=== PATIENT | female | born 1945 | race Hispanic/Latino ===

== ENCOUNTER → 2017-11-17 | Outpatient (CLI) | payer OTHER, MEDICARE ==
[~2017-11-17] MED LIST: AEC81 PO; ATOR40TA69 PO; DILT120C49 PO; LEVO75TA10 PO; LISI10TA7 PO
== END | disposition home or self-care (01) ==
LOC: RAH 12:24
PROVIDERS: ATTEND Family Medicine
DX: N63.20 Unspecified lump in the left breast, unspecified quadrant (principal); N63.10 Unspecified lump in the right breast, unspecified quadrant; R92.8 Other abnormal and inconclusive findings on diagnostic imaging of breast
CPT/HCPCS: 76641; 77066

== ENCOUNTER → 2019-02-08 | Outpatient (CLI) | payer OTHER, MEDICARE | END | disposition home or self-care (01) | LOC: RAH 08:48 | PROVIDERS: ATTEND Family Medicine | DX: N64.4 Mastodynia (principal) | CPT/HCPCS: 77066 ==

== ENCOUNTER 2020-02-13 06:50 | Observation (INO) | payer OTHER, MEDICARE ==
[2020-02-11 11:10] LABS: APPEARANCE,URINE Clear (CLEAR); BILIRUBIN,URINE Negative (NEGATIVE); COLOR,URINE Yellow (YELLOW); GLUCOSE, URINE (UA) Negative (NEGATIVE); KETONES,URINE Negative (NEGATIVE); LEUKOCYTE ESTERASE ,URINE Trace (NEGATIVE); NITRATE,URINE Negative (NEGATIVE); OCCULT BLOOD,URINE Negative (NEGATIVE); PH,URINE 6.5 (5.0-8.0); PROTEIN,URINE Negative (NEGATIVE)
[2020-02-11 11:20] LABS: CREATININE 0.8 mg/dL (0.5-1.5); POTASSIUM 3.9 mmol/L (3.5-5.1)
[2020-02-11 11:25] LABS: INR 0.99 (0.85-1.15); PARTIAL THROMBOPLASTIN TIME 23.5 SEC (26.3-35.5); PROTHROMBIN TIME 10.7 SEC (9.6-11.6)
[2020-02-11 11:26] LABS: BACTERIA,URINE Rare /HPF (None Seen); RBC,URINE 0-1 /HPF (0-1); SQUAMOUS EPITHELIAL CELL,UR Few /HPF (0-2); WBC,URINE 0-1 /HPF (0-1)
[2020-02-11 11:27] LABS: BASOPHILS % (AUTO) 0.7 % (0.0-5.0); HEMATOCRIT 41.8 % (36-48); MEAN CORPUSCULAR HEMOGLOBIN 30.4 pg (27.0-33.0); MEAN CORPUSCULAR HGB CONC 32.3 g/dL (32.0-36.0); MEAN CORPUSCULAR VOLUME 94.1 fL (79-99); MONOCYTES % (AUTO) 6.9 % (3.0-13.0); NEUTROPHILS % (AUTO) 68.2 % (40.0-77.0); PLATELET COUNT (AUTO) 203 K/uL (130-400); RED BLOOD CELL COUNT(AUTO) 4.44 MIL/uL (4.00-5.50); RED CELL DISTRIBUTION WIDTH 13.6 % (11.0-15.5)
[2020-02-12 11:16] VITALS: BP 183/97
--- NOTE | 2020-02-12 14:02 | NUR ---
EKG ANORMAL EKG REPORTED TO Dara ROSE. NO FURTHER ORDERS GIVEN
--- NOTE | 2020-02-12 15:16 | NUR ---
UA INFORMED Lee NGUYỄN RN OF ABNORMAL UA. SHE WILL INFORM DR. MCKAY AND CALL BACK.
--- NOTE | 2020-02-12 15:44 | NUR ---
RE: URINALYSIS RECEIVED ORDERS REGARDING ABNORMAL US, OBTAIN URINE CULTURE IN AM. (SPOKE WITH ELENA WILSON)
[~2020-02-13] VITALS: Ht 165.1 cm; Wt 101.0 kg
[2020-02-13] VITALS (27 sets, daily range): BP systolic 108–161; BP diastolic 46–80
[2020-02-13] MEDS: CEFAZOLIN SODIUM 1 GM VIAL IVP SCH ×3 (06:00→16:50)
[~2020-02-13 06:50] MED LIST changes: -AEC81 PO; -DILT120C49 PO; +LEVO150T11 PO; -LEVO75TA10 PO; +VITAMIN B 12 PO; +VITAMIN D PO
[2020-02-13] MEDS ORDERED: LACTATED RINGERS 1000ML 1,000 ML IV ONE (08:19)
[2020-02-13] MEDS ORDERED: SUCCINYLCHOLINE CHLORIDE 20 MG/ML 10 ML VIAL ONE (09:34)
[2020-02-13] MEDS ORDERED: LIDOCAINE PF 2% 5ML ABBOJECT ONE (09:34)
[2020-02-13] MEDS ORDERED: PROPOFOL 10 MG/ML 20ML VIAL IV ONE (09:34)
[2020-02-13] MEDS ORDERED: ROCURONIUM 10MG/1ML SYR 10 MG/ML ML ONE (09:34)
[2020-02-13] MEDS ORDERED: FENTANYL CITRATE PF 50 MCG/1 ML 2ML VIAL ONE (09:35)
[2020-02-13] MEDS ORDERED: ROPIVACAINE 0.5% 5MG/ML 30ML IJ ONE (09:38)
[2020-02-13] MEDS ORDERED: ACETAMINOPHEN EXTRA STRENGTH 500 MG TABLET ONE (09:40)
--- NOTE | 2020-02-13 09:40 | NUR ---
INFORMED DR MCKAY THAT PATIENT WAS NOT ABLE TO PROVIDE URINE SAMPLE FOR URINE CULTURE/UA. RECEIVED ORDERS TO GIVE GENTAMICIN 240MG IV.
[2020-02-13] MEDS ORDERED: KETOROLAC TROMETHAMINE 15MG/ML ONE (09:41)
[2020-02-13] MEDS ORDERED: CELECOXIB 200 MG CAP ONE (09:41)
[2020-02-13] MEDS ORDERED: GENTAMICIN 120 MG IN 100ML NS 100 ML IV SCH (09:45)
[2020-02-13] MEDS ORDERED: CEFAZOLIN SODIUM 1 GM VIAL ONE (09:51)
--- NOTE | 2020-02-13 10:08 | NUR ---
PATIENT TAKEN INTO OR VIA BED BY ELENA CORCORAN
[2020-02-13] MEDS ORDERED: TRANEXAMIC ACID 1000MG/10ML ONE ×2 (10:29→12:49)
[2020-02-13] MEDS ORDERED: EPHEDRINE SULFATE 50 MG/ML AMPULE ONE (10:36)
[2020-02-13] MEDS ORDERED: NEOSTIGMINE 5MG/5ML SYR IV ONE (12:02)
[2020-02-13] MEDS ORDERED: GLYCOPYRROLATE 1 MG/5 ML SYRINGE ONE (12:02)
[2020-02-13] MEDS ORDERED: LIDOCAINE HCL-MPF 1% 2ML VIAL IV PRN (12:15)
[2020-02-13] MEDS ORDERED: KETOROLAC TROMETHAMINE 15MG/ML IV PRN (12:15)
[2020-02-13] MEDS ORDERED: FERROUS FUMARATE 324 MG TABLET PO PRN (12:15)
[2020-02-13] MEDS ORDERED: DiphenhydrAMINE HCL 50 MG/ML VIAL IVP PRN (12:15)
[2020-02-13] MEDS ORDERED: POTASSIUM CHLORIDE 20 MEQ ERTAB PO PRN (12:15)
[2020-02-13] MEDS ORDERED: ONDANSETRON HCL 4 MG/2 ML VIAL IVP PRN (12:15)
[2020-02-13] MEDS ORDERED: POTASSIUM CHLORIDE 20MEQ/100ML 100 ML IV PRN (12:15)
[2020-02-13] MEDS ORDERED: OXYCODONE HCL 5 MG TAB PO PRN (12:15)
[2020-02-13] MEDS ORDERED: POTASSIUM CHLORIDE 10% ELIXIR 20 MEQ/15 ML UDCUP PO PRN (12:15)
[2020-02-13] MEDS ORDERED: TRAMADOL HCL 50 MG TABLET PO PRN (12:15)
[2020-02-13] MEDS: ACETAMINOPHEN EXTRA STRENGTH 500 MG TABLET PO SCH ×2 (12:15→20:30)
[2020-02-13] MEDS ORDERED: ONDANSETRON HCL 4 MG/2 ML VIAL ONE (12:23)
[2020-02-13] MEDS ORDERED: MEPERIDINE-PF 25 MG/ML SYG ONE (13:17)
[2020-02-13] MEDS: SODIUM CHLORIDE 0.9% 1000ML 1,000 ML IV SCH (14:20)
--- NOTE | 2020-02-13 17:00 | NUR ---
DISRAGE PLANNING AND BARRIERS TO DISPOSITION- SUMMARY INITIAL ASSESSEMENT DONE AT [address], STATES DRIVES AND IS INDEPENDENT, HAS WKR, ROLLING WKR, SHOWER CHAIR, CANE, NO STEP, HOME SAFE AND ACCESSIBLE, [facility] HAS A PROVIDER, [place] NOT DISCLOSE HOURS, JUAN A TOLD HER PROVIDER NOT TO COME BACK WHEN SHE GOES HOME- BECUASE SHE WAS COUGHING REVIEWED THE ORDER RECIEVED RE CONTACT FAMILY/ALTERNATE PLACEMENT TO SNF IF NO FAMILY ; ATTEMPTED TO CALL DAUGHTER WITH NUMBER PATIENT PROVIDED, INCORRECT, BUSY X 5 ATTEMPTS, PATIENT WITHOUT HER CELL PHONE TO CHECK NUMBER, DECLINED TO SAY WHEN DAUGHTER WOULD BE COMING TO ASSIST WITH DISCHARGE. VERBAL MARLON FOR [facility] CALL TO [facility],REP FOR [facility]; ADVISED HER UNABLE TO GET NUMBER FOR DAUGHTER, ADVISED HER OF SITUATION, PT HAS NO PROVIDER, ERC. [facility] SAY CUT OF FOR SCREENING SWAB IS 3 PM, NOT ABLE TO SWAB PATIENT TONCHAVEZ GRIFFIN SUGGESTED- CAN [facility] WILL SWAB NOW TO AVOID DELAY. ORDER REC'D FROM DR. MCKAY FOR SCREENING SWAB FOR PATIENT.POSSIBLE ACCEPTANCE TO [facility] IN AM AFTER REVIEW FO CHART WILL SEND PKT. HERMAN TO CALL PATIENT FOR INTERVIEW WHEN PKT REC'D TO ASSESS IF PATIENT CAN BE ACCEPTED WITHOUT RESULT FINAL. GOT CORRECT NUMBER OF DAUGHTER FROM PATIENT, ATTEMPTED TO CALL, NO ANSWER, WILL FOLLOW UP IN AM. PENDING PT NOTES FOR REFERRAL TO [facility] Addendum: 02/14/20 at 0815 by LYLE JOLLY RN CM Amended: Links added.
[2020-02-13] MEDS: FAMOTIDINE 20MG TAB 20 MG TAB PO SCH (20:30)
[2020-02-13] MEDS: ASPIRIN 81MG TAB.CHEW PO SCH (20:30)
[2020-02-13] MEDS: ATORVASTATIN CALCIUM 40 MG TABLET PO SCH (20:30)
[2020-02-13] MEDS: PREGABALIN 25 MG CAP PO SCH (20:30)
[2020-02-13] MEDS: CELECOXIB 200 MG CAP PO SCH (20:32)
[2020-02-13] MEDS: TEMAZEPAM 15 MG CAPSULE PO PRN (20:52)
[2020-02-14] MEDS: CEFAZOLIN SODIUM 1 GM VIAL IVP SCH (00:48)
[2020-02-14] MEDS: SODIUM CHLORIDE 0.9% 1000ML 1,000 ML IV SCH ×2 (00:51→08:13)
[2020-02-14 03:59] VITALS: BP 130/66
[2020-02-14 04:21] LABS: HEMATOCRIT 32.3 % (36-48); MEAN CORPUSCULAR HEMOGLOBIN 31.6 pg (27.0-33.0); MEAN CORPUSCULAR HGB CONC 33.1 g/dL (32.0-36.0); MEAN CORPUSCULAR VOLUME 95.3 fL (79-99); RED BLOOD CELL COUNT(AUTO) 3.39 MIL/uL (4.00-5.50); RED CELL DISTRIBUTION WIDTH 13.7 % (11.0-15.5); WHITE BLOOD COUNT (AUTO) 9.5 K/uL (4.8-10.8)
[2020-02-14 04:56] LABS: POTASSIUM 4.2 mmol/L (3.5-5.1)
[2020-02-14] MEDS: ACETAMINOPHEN EXTRA STRENGTH 500 MG TABLET PO SCH ×3 (05:21→20:43)
[2020-02-14] MEDS: LEVOTHYROXINE 150 MCG TABLET PO SCH (05:29)
[2020-02-14] MEDS: OXYCODONE HCL 5 MG TAB PO PRN (08:02)
[2020-02-14 08:18] VITALS: BP 126/54
--- NOTE | 2020-02-14 08:19 | NUR ---
SPOKE TO DAUGHTER ON PHONE, PLANS TO TRAVEL IN NEXT WEEK Addendum: 02/14/20 at 0819 by LYLE JOLLY RN CM Amended: Links added.
--- NOTE | 2020-02-14 08:52 | NUR ---
CONFIRMED W PATIENT- ONLY WANTS TO GO TO [facility] NO OTHER FACILITY, IF IF IT MEANS WAITING RODKIMBERLY ALSO STATED HAD A TEST BACK AT [facility] 'ABOUT A MONTH AGO' WAS NEVER TOLD THE RESULT, WAS NOT TOLD TO SELF ISOLATE, PER PATIENT WILL ATTEMPT TO GET RESULT
[2020-02-14] MEDS: VITAMIN D PO SCH (09:00)
[2020-02-14] MEDS: PREGABALIN 25 MG CAP PO SCH ×2 (10:47→20:42)
[2020-02-14] MEDS: CELECOXIB 200 MG CAP PO SCH ×2 (10:47→20:42)
[2020-02-14] MEDS: LISINOPRIL 10 MG TABLET PO SCH (10:48)
[2020-02-14] MEDS: FAMOTIDINE 20MG TAB 20 MG TAB PO SCH ×2 (10:48→20:42)
[2020-02-14] MEDS: ASPIRIN 81MG TAB.CHEW PO SCH ×2 (10:48→20:42)
[2020-02-14] MEDS: POLYETHYLENE GLYCOL 3350 17 GM POWD.PACK PO SCH (10:49)
[2020-02-14] MEDS: CALCIUM CARBONATE 500 MG TABLET PO PRN ×2 (10:57→20:42)
[2020-02-14 12:32] VITALS: BP 156/53
--- NOTE | 2020-02-14 13:59 | NUR ---
WAITING ON ACCEPTANCE AT [facility] Addendum: 02/14/20 at 1400 by LYLE JOLLY RN CM Amended: Links added.
[2020-02-14 17:03] VITALS: BP 159/59
[2020-02-14 19:29] VITALS: BP 162/75
[2020-02-14] MEDS: ATORVASTATIN CALCIUM 40 MG TABLET PO SCH (20:42)
[2020-02-14] MEDS: TEMAZEPAM 15 MG CAPSULE PO PRN (20:42)
[2020-02-14 23:51] VITALS: BP 107/47
[2020-02-15 03:54] VITALS: BP 127/56
[2020-02-15] MEDS: LEVOTHYROXINE 150 MCG TABLET PO SCH (04:59)
[2020-02-15] MEDS: ACETAMINOPHEN EXTRA STRENGTH 500 MG TABLET PO SCH ×3 (05:00→21:00)
[2020-02-15 07:30] VITALS: BP 122/47
[2020-02-15] MEDS: PREGABALIN 25 MG CAP PO SCH ×2 (08:47→20:59)
[2020-02-15] MEDS: ASPIRIN 81MG TAB.CHEW PO SCH ×2 (08:47→20:59)
[2020-02-15] MEDS: FAMOTIDINE 20MG TAB 20 MG TAB PO SCH ×2 (08:47→20:59)
[2020-02-15] MEDS: LISINOPRIL 10 MG TABLET PO SCH (08:47)
[2020-02-15] MEDS: POLYETHYLENE GLYCOL 3350 17 GM POWD.PACK PO SCH (08:47)
[2020-02-15] MEDS: VITAMIN D PO SCH (08:47)
[2020-02-15] MEDS: CELECOXIB 200 MG CAP PO SCH ×2 (08:48→20:59)
--- NOTE | 2020-02-15 11:33 | NUR ---
PENDING [facility] ACCEPTANCE
[2020-02-15 16:00] VITALS: BP 120/53
[2020-02-15 19:00] VITALS: BP 149/64
[2020-02-15] MEDS: ATORVASTATIN CALCIUM 40 MG TABLET PO SCH (20:59)
[2020-02-16] VITALS: BP 124/54
[2020-02-16 03:45] VITALS: BP 139/79
[2020-02-16] MEDS: ACETAMINOPHEN EXTRA STRENGTH 500 MG TABLET PO SCH ×2 (06:18→13:49)
[2020-02-16] MEDS: LEVOTHYROXINE 150 MCG TABLET PO SCH (06:18)
[2020-02-16 07:30] VITALS: BP 142/64
[2020-02-16] MEDS ORDERED: ASPI-1005 PO (08:59)
[2020-02-16] MEDS ORDERED: HYDR-4457 PO (08:59)
[2020-02-16] MEDS: VITAMIN D PO SCH (09:00)
[2020-02-16] MEDS: FAMOTIDINE 20MG TAB 20 MG TAB PO SCH (09:19)
[2020-02-16] MEDS: POLYETHYLENE GLYCOL 3350 17 GM POWD.PACK PO SCH (09:20)
[2020-02-16] MEDS: LISINOPRIL 10 MG TABLET PO SCH (09:20)
[2020-02-16] MEDS: CELECOXIB 200 MG CAP PO SCH (09:20)
[2020-02-16] MEDS: ASPIRIN 81MG TAB.CHEW PO SCH (09:20)
[2020-02-16] MEDS: PREGABALIN 25 MG CAP PO SCH (09:20)
[2020-02-16] MEDS: OXYCODONE HCL 5 MG TAB PO PRN (09:21)
--- NOTE | 2020-02-16 11:47 | NUR ---
cm note call made to david mckoy with [facility] requested covid results and were faxed to [facility] . states pt approved, and can go today if ready. updated primary nurse. and charge nurse.
[2020-02-16] MEDS ORDERED: BISACODYL 10 MG SUPP.RECT RC PRN (12:15)
== END 2020-02-16 14:20 ==
LOC: DAH 06:50 → 3DH 06:51
PROVIDERS: ADMIT Orthopaedic Surgery; ATTEND Orthopaedic Surgery
DX: M17.0 Bilateral primary osteoarthritis of knee (principal); I25.10 Atherosclerotic heart disease of native coronary artery without angina pectoris; I11.9 Hypertensive heart disease without heart failure; M15.9 Polyosteoarthritis, unspecified; E03.9 Hypothyroidism, unspecified; E78.00 Pure hypercholesterolemia, unspecified; E78.5 Hyperlipidemia, unspecified; R00.0 Tachycardia, unspecified; E66.9 Obesity, unspecified; Z03.818 Encounter for observation for suspected exposure to other biological agents ruled out; Z90.49 Acquired absence of other specified parts of digestive tract; Z98.51 Tubal ligation status; Z79.82 Long term (current) use of aspirin; Z79.899 Other long term (current) drug therapy; Z88.0 Allergy status to penicillin; Z88.8 Allergy status to other drugs, medicaments and biological substances; Z68.37 Body mass index [BMI] 37.0-37.9, adult
CPT/HCPCS: 27447; 36415 ×3; 80048 ×2; 81001; 85025; 85027; 85610; 85730; 87633; 87635; 87641; 93005; 96365; 96375 ×2; 96376; 97039 ×5; 97116 ×4; 97161; 97530 ×4; A4213; A4215; A4216; A4221; A4222; A4223 ×2; A4600; A4649 ×3; A4663; A4930 ×2; A5120; A6223; A9272; C1776; G0378 ×72; G8978; G8979; G8980; G8981; G8982; G8983; J0330; J0690 ×5; J1580; J1885 ×2; J2001; J2175; J2405; J2704; J2710; J2795; J3010; J3490 ×4; J7120 ×2; 96374

== ENCOUNTER 2022-07-02 16:37 | Emergency (ER) | payer OTHER, MEDICARE ==
[~2022-07-02] VITALS: Ht 165.1 cm; Wt 93.0 kg
[~2022-07-02 16:37] MED LIST changes: +AMOX-426 PO; +ASPI-1005 PO; +ATOR20TA65 PO; -ATOR40TA69 PO; +LIDOP TP; -LISI10TA7 PO; +LOSA100T58 PO; +NITR0.4T SL; +TAMS-1 PO; -VITAMIN D PO
[2022-07-02 17:48] LABS: BASOPHILS % (AUTO) 0.9 % (0.0-5.0); HEMATOCRIT 40.6 % (36-48); LYMPHOCYTES % (AUTO) 20.5 % (21.0-51.0); MEAN CORPUSCULAR HEMOGLOBIN 30.4 pg (27.0-33.0); MEAN CORPUSCULAR HGB CONC 33.5 g/dL (32.0-36.0); MEAN CORPUSCULAR VOLUME 90.8 fL (79-99); MONOCYTES % (AUTO) 7.7 % (3.0-13.0); NEUTROPHILS % (AUTO) 67.5 % (40.0-77.0); PLATELET COUNT (AUTO) 234 K/uL (130-400); RED BLOOD CELL COUNT(AUTO) 4.47 MIL/uL (4.00-5.50); RED CELL DISTRIBUTION WIDTH 13.4 % (11.0-15.5); WHITE BLOOD COUNT (AUTO) 7.4 K/uL (4.8-10.8)
[2022-07-02 17:50] LABS: APPEARANCE,URINE CLEAR (CLEAR); BILIRUBIN,URINE NEGATIVE (NEGATIVE); COLOR,URINE COLORLESS (YELLOW); GLUCOSE, URINE (UA) NEGATIVE (NEGATIVE); KETONES,URINE NEGATIVE (NEGATIVE); LEUKOCYTE ESTERASE ,URINE 500 Leu/uL (NEGATIVE); NITRATE,URINE NEGATIVE (NEGATIVE); OCCULT BLOOD,URINE NEGATIVE (NEGATIVE); PROTEIN,URINE NEGATIVE (NEGATIVE); UROBILINOGEN,URINE 0.2 mg/dL (0.2-1.0)
[2022-07-02 17:59] LABS: BACTERIA,URINE RARE /HPF (None Seen); RBC,URINE 0-1 /HPF (0-1); RENAL EPITHELIAL CELLS,URINE FEW /HPF (None Seen); SQUAMOUS EPITHELIAL CELL,UR RARE /HPF (0-2)
[2022-07-02 18:00] LABS: CREATININE 0.9 mg/dL (0.5-1.5); POTASSIUM 4.6 mmol/L (3.5-5.1)
[2022-07-02 18:09] LABS: ALBUMIN 3.8 g/dL (3.5-5.0); TOTAL PROTEIN, SERUM 7.8 g/dL (6.0-8.3)
[2022-07-02] MEDS ORDERED: CEFTRIAXONE 1G VIAL IVP ONE (19:00)
[2022-07-02 19:04] VITALS: BP 166/76
[2022-07-02] MEDS ORDERED: CEPH500B PO (19:50)
== END 2022-07-02 19:59 | disposition home or self-care (01) ==
LOC: EDH 16:37
DX: N39.0 Urinary tract infection, site not specified (principal); I10 Essential (primary) hypertension; Z88.5 Allergy status to narcotic agent; Z88.8 Allergy status to other drugs, medicaments and biological substances; Z79.899 Other long term (current) drug therapy; Z79.82 Long term (current) use of aspirin
CPT/HCPCS: 99284; 96374; 84484; 80053; 85025; 87088; 81001; 36415; 93005; J0696

== ENCOUNTER 2022-07-18 10:35 | Emergency (ER) | payer OTHER, MEDICARE ==
[~2022-07-18] VITALS: Ht 165.1 cm; Wt 93.0 kg
[~2022-07-18 10:35] MED LIST changes: +CEPH500B PO
[2022-07-18 12:37] LABS: BASOPHILS % (AUTO) 0.9 % (0.0-5.0); EOSINOPHILS % (AUTO) 1.8 % (0.0-8.0); HEMATOCRIT 39.6 % (36-48); MEAN CORPUSCULAR HEMOGLOBIN 30.7 pg (27.0-33.0); MEAN CORPUSCULAR HGB CONC 33.6 g/dL (32.0-36.0); MEAN CORPUSCULAR VOLUME 91.5 fL (79-99); MONOCYTES % (AUTO) 15.8 % (3.0-13.0); NEUTROPHILS % (AUTO) 67.3 % (40.0-77.0); PLATELET COUNT (AUTO) 142 K/uL (130-400); RED BLOOD CELL COUNT(AUTO) 4.33 MIL/uL (4.00-5.50); RED CELL DISTRIBUTION WIDTH 13.3 % (11.0-15.5); WHITE BLOOD COUNT (AUTO) 4.4 K/uL (4.8-10.8)
[2022-07-18 12:50] LABS: CREATININE 0.9 mg/dL (0.5-1.5); POTASSIUM 3.8 mmol/L (3.5-5.1)
[2022-07-18 12:56] LABS: ALBUMIN 3.6 g/dL (3.5-5.0); TOTAL PROTEIN, SERUM 7.6 g/dL (6.0-8.3)
[2022-07-18 14:49] VITALS: BP 158/65
[2022-07-18] MEDS ORDERED: OSEL75 PO (14:56)
== END 2022-07-18 15:13 | disposition home or self-care (01) ==
LOC: EDH 10:35
DX: J10.1 Influenza due to other identified influenza virus with other respiratory manifestations (principal); Z20.822 Contact with and (suspected) exposure to COVID-19; I10 Essential (primary) hypertension; Z88.1 Allergy status to other antibiotic agents; Z88.6 Allergy status to analgesic agent; Z79.899 Other long term (current) drug therapy; Z79.82 Long term (current) use of aspirin; Z98.890 Other specified postprocedural states; Z90.89 Acquired absence of other organs
CPT/HCPCS: 99284; 71045; 87635; 84484; 80053; 83690; 85025; 87880; 87804 ×2; 36415; C9803

== ENCOUNTER 2024-09-24 09:43 | Emergency (ER) | payer OTHER, MEDICARE ==
[~2024-09-24] VITALS: Ht 162.6 cm; Wt 90.7 kg
[~2024-09-24 09:43] MED LIST changes: -LOSA100T58 PO; +LOSA100T59 PO; +OSEL75 PO
--- NOTE | 2024-09-24 10:19 | EKG ---
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
[2024-09-24] MEDS: PROCHLORPERAZINE 10MG/2ML INJ IV ONE (10:24)
[2024-09-24] MEDS: 0.9%NACL 1000ML 1,000 ML IV ONE (10:24)
[2024-09-24] MEDS: DiphenhydrAMINE HCL 50 MG/ML VIAL IV ONE (10:24)
[2024-09-24 10:25] LABS: BASOPHILS # (AUTO) 0.06 K/uL (0.00-0.20); BASOPHILS % (AUTO) 1.1 % (0.0-5.0); EOSINOPHILS % (AUTO) 1.8 % (0.0-8.0); HEMATOCRIT 41.9 % (36-48); IMMATURE GRANULOCYTE ABSOLUTE 0.01 K/uL (0-1); LYMPHOCYTES # (AUTO) 1.7 K/uL (1.0-4.8); LYMPHOCYTES % (AUTO) 30.8 % (21.0-51.0); MEAN CORPUSCULAR HGB CONC 33.4 g/dL (32.0-36.0); MEAN CORPUSCULAR VOLUME 95.7 fL (79-99); MONOCYTES # (AUTO) 0.4 K/uL (0.1-1.0); MONOCYTES % (AUTO) 6.8 % (3.0-13.0); NEUTROPHILS # (AUTO) 3.3 K/uL (1.8-7.7); NEUTROPHILS % (AUTO) 59.3 % (40.0-77.0); PLATELET COUNT (AUTO) 192 K/uL (130-400); RED BLOOD CELL COUNT(AUTO) 4.38 MIL/uL (4.00-5.50); RED CELL DISTRIBUTION WIDTH 13.2 % (11.0-15.5); WHITE BLOOD COUNT (AUTO) 5.6 K/uL (4.8-10.8)
[2024-09-24 10:40] LABS: CREATININE 0.9 mg/dL (0.5-1.0); MAGNESIUM 2.1 mg/dL (1.80-2.40); POTASSIUM 3.9 mmol/L (3.5-5.1)
[2024-09-24 10:41] LABS: INR 0.98 (0.85-1.15)
[2024-09-24 10:42] LABS: INFLUENZA TYPE A Negative For Type A (NEGATIVE); INFLUENZA TYPE B Negative For Type B (NEGATIVE); SARS-CoV-2, RNA, NAAT NEGATIVE SARS CoV-2 (NEGATIVE)
--- NOTE | 2024-09-24 10:43 | ERN ---
General Chief Complaint: Headache Stated Complaint: HEADACHE, RT EYE DROOP, RT ARM PAIN X 4 DAYS Time Seen by MD: 09:47 History of Present Illness Initial Comments 79-year-old female presents to the ED for evaluation of headache onset 4 days ago. Patient reports eye droop, right arm pain, right shoulder pain, but denies any other associated symptoms at this time. Patient mentioned she has been exp eriencing right-sided headache that has been radiating down to the right side of her face and states she feels her right eye is droopy. Allergies: Coded Allergies: ciprofloxacin HCl (Verified Allergy, Unknown, 06/28/22) tramadol (Unverified Allergy, Unknown, HALLUCINATIONS, 06/28/22) Home Meds Active Scripts Oseltamivir Phosphate (Tamiflu) 75 Mg Cap, 75 MG PO BID for 5 Days, #10 CAP Prov:CRISTHIAN RODRIGES MD 07/18/22 Cephalexin Monohydrate (Keflex) 500 Mg Cap, 1000 MG PO BID for 7 Days, #28 CAP Prov:VIVIAN PUGH NP 07/02/22 Lidocaine (Lidoderm Patch 5%) 1 Patch Patch, 7 PATCH TP DAILY for 7 Days, #7 ADH.PATCH Prov:PERLA PERDOMO 06/29/22 Tamsulosin HCl (Flomax) 0.4 Mg Cap.er.24h, 0.4 MG PO DAILY for 14 Days, #14 CAPSULE.DR Prov:PERLA PERDOMO 06/29/22 Amoxicillin/Potassium Clav (Augmentin 500-125 Tablet) 1 Each Tablet, 1 EACH PO BID for 7 Days, #14 TAB Prov:PERLA PERDOMO 06/28/22 Aspirin (ASPIRIN 81MG CHEW TAB) 81 Mg Tab.chew, 81 MG PO BID, #60 TAB.CHEW Prov:ESTHER MCKAY MD 02/16/20 Reported Medications Atorvastatin Calcium (Atorvastatin Calcium) 20 Mg Tablet, 1 TAB PO DAILY for cholesterol 06/28/22 Losartan Potassium (Losartan Potassium) 100 Mg Tablet, 1 TAB PO DAILY for blood pressure 06/28/22 Nitroglycerin (Nitrostat) 0.4 Mg Tab.subl, 0.4 MG SL AD, TAB.SL 06/28/22 [Vitamin B 12] No Conflict Check, 1000 MCG PO DAILY 02/12/20 Levothyroxine Sodium (Levothyroxine Sodium) 150 Mcg Tablet, 150 MCG PO DAILY, TAB 02/12/20 Past Medical History Past Medical History: High Cholesterol, Hypertension, TIA Past Surgical History: Tonsillectomy, BTL Surgical History Other: RT KNEE Family History Family History: Negative Social History Social History: Negative ROS Dictation Constitutional: Negative for fever,chills, and weight loss Eyes: Negative for injury, pain,redness, and discharge ENT: Negative for injury,pain or swelling Cardiovascular: Negative for chest pain, palpitations, and edema Respiratory: Negative for shortness of breath, cough, and wheezing, Abdomen/GI: Negative for abdominal pain, nausea, vomiting, diarrhea, and constipation Back: Negative for injury and pain : Negative for injury, bleeding and discharge MS/Extremity: Positive for right shoulder pain, right arm pain Negative for injury and deformity Skin: Negative for rash, and discoloration Neuro: Positive for headache weakness, numbness, tingling, and seizure Psych: Negative for suicide ideation, homicidal ideation, and hallucinations Physical Exam Physical Exam Dictation General: awake, alert, NAD Head/Face: Normocephalic, atraumatic Eyes: PERRL, EOMI, vision at baseline ENT: oral cavity clear, TMs clear, no signs of infection Neck: Trachea midline, supple, no nuchal rigidity Cardiovascular: RRR, normal S1/S2, No MRGs, no JVD Respiratory: CTAB, no respiratory distress, No rales or wheezes Abdomen: Soft, non-tender, non-distended, normal bowel sounds, no guarding or rebound. Skin: Warm, dry, normal turgor, no rash MS/Extremity: Pulses equal, no cyanosis, neurovascular intact, FROM Neuro: COAx4, GCS 15, strength 5/5, CN 2-12 intact, normal cerebellar exam, nor mal gait, Psych: Normal behavior, mood, and affect normal Results Laboratory and Microbiology Lab and Micro Result Laboratory Tests Test 09/24/24 10:15 09/24/24 10:18 09/24/24 10:33 Influenza Type A Antigen Negative For Type A Influenza Type B Antigen Negative For Type B SARS-CoV-2, RNA, NAAT NEGATIVE SARS CoV-2 White Blood Count 5.6 K/uL (4.8-10.8) Red Blood Count 4.38 MIL/uL (4.00-5.50) Hemoglobin 14.0 g/dL (12.0-16.0) Hematocrit 41.9 % (36-48) Mean Corpuscular Volume 95.7 fL (79-99) Mean Corpuscular Hemoglobin 32.0 pg (27.0-33.0) Mean Corpuscular Hemoglobin Concent 33.4 g/dL (32.0-36.0) Red Cell Distribution Width 13.2 % (11.0-15.5) Platelet Count 192 K/uL (130-400) Mean Platelet Volume 9.7 fL (7.5-10.5) Immature Granulocyte % (Auto) 0.2 % (0-1) Neutrophils (%) (Auto) 59.3 % (40.0-77.0) Lymphocytes (%) (Auto) 30.8 % (21.0-51.0) Monocytes (%) (Auto) 6.8 % (3.0-13.0) Eosinophils (%) (Auto) 1.8 % (0.0-8.0) Basophils (%) (Auto) 1.1 % (0.0-5.0) Neutrophils # (Auto) 3.3 K/uL (1.8-7.7) Lymphocytes # (Auto) 1.7 K/uL (1.0-4.8) Monocytes # (Auto) 0.4 K/uL (0.1-1.0) Eosinophils # (Auto) 0.10 K/uL (0.00-0.70) Basophils # (Auto) 0.06 K/uL (0.00-0.20) Absolute Immature Granulocyte (auto 0.01 K/uL (0-1) Nucleated Red Blood Cells 0.0 % (0.0-0.19) Prothrombin Time 11.0 SEC (9.6-11.6) Prothromb Time International Ratio 0.98 (0.85-1.15) Activated Partial Thromboplast Time 23.0 SEC (26.3-35.5) L Sodium Level 139 mmol/L (136-145) Potassium Level 3.9 mmol/L (3.5-5.1) Chloride Level 103 mmol/L (101-111) Carbon Dioxide Level 31 mmol/L (21-32) Blood Urea Nitrogen 16 mg/dL (7-18) Creatinine 0.9 mg/dL (0.5-1.0) Glomerular Filtration Rate Calc 65 mL/min (>90) Random Glucose 137 mg/dL (70-105) H Total Calcium 9.5 mg/dL (8.5-10.1) Magnesium Level 2.10 mg/dL (1.80-2.40) Total Creatine Kinase 127 U/L (21-232) # Troponin I High Sensitivity 8 ng/L (4-50) B-Type Natriuretic Peptide 13 pg/mL (0-100) Urine Color YELLOW (YELLOW) Urine Appearance CLEAR (CLEAR) Urine pH 5.5 (5.0-8.0) Urine Specific [place] 1.023 (1.001-1.031) Urine Protein 10 mg/dL (NEGATIVE) H Urine Glucose (UA) NEGATIVE mg/dL (NEGATIVE) Urine Ketones NEGATIVE mg/dL (NEGATIVE) Urine Occult Blood NEGATIVE (NEGATIVE) Urine Nitrate NEGATIVE (NEGATIVE) Urine Bilirubin NEGATIVE mg/dL (NEGATIVE) Urine Urobilinogen 0.2 mg/dL (0.2-1.0) Urine Leukocyte Esterase 250 Andressa/uL (NEGATIVE) H Urine RBC 2-5 /HPF (0-1) H Urine WBC 2-5 /HPF (0-1) H Urine Squamous Epithelial Cells FEW /HPF (0-2) Urine Bacteria RARE /HPF (None Seen) Labs Reviewed?: Yes EKG/XRAY/US/CT/MRI EKG Comment EKG 09/24/2024 time 10:11 a.m. ventricular rate 60, sinus rhythm, left anterior fascicular block, probable left ventricular hypertrophy. No STEMI X-RAY Comment REASON: cp ORDERING PHYSICIAN: MARCELA GUAMAN MD PROCEDURE: CXR1VW - CHEST 1VW CHEST 1VW HISTORY: Chest pain COMPARISON: 07/18/2000 FINDINGS: A frontal projection of the chest was obtained. Prominent interstitial markings are seen with possible superimposed infiltrates. The heart is borderline enlarged. Degenerative changes are seen. Aortic calcifications are seen. IMPRESSION: 1. Prominent interstitial markings are seen with possible superimposed infiltrates. DICTATED BY: MILLIE TRAVIS MD DATE: 09/24/[address] Scan Comment REASON: headache frontal ORDERING PHYSICIAN: MARCELA GUAMAN MD PROCEDURE: HEAD WO - CT HEAD/BRAIN W/O CONTRAST CT HEAD/BRAIN W/O CONTRAST HISTORY: Headaches COMPARISON: None TECHNIQUE: Multiple sequential axial images of the head were obtained from the base of the skull through vertex. Patient was not given contrast through intravenous route. FINDINGS: The ventricles and extraventricular CSF spaces are dilated consistent with cerebral atrophy. Nonspecific white matter changes seen. There is no midline shift, mass effect or herniation. No acute intracranial bleed is seen. Visualized portion of the paranasal sinuses are grossly within normal limits. IMPRESSION: 1. No acute intracranial bleed is seen. 2. Atrophy with white matter changes. CT was performed with one or more following dose reduction techniques: automated exposure control, adjustment of the mA and kv according to patient's size, or use of a iterative reconstruction technique. DICTATED BY: MILLIE TRAVIS MD DATE: 09/24/24 1120 MDM MDM: Differential diagnosis: Headache, sinusitis, shoulder pain Previous outside records reviewed: Old ER visits. Need for hospitalization: Patient does not meet criteria for hospitalization. Need for emergency major/minor surgery: No Patient's prior external medical records from other ER visits were reviewed by me as indicated. Prior testing and results from previous visits were reviewed. Prior tests were taken into account with medical decision making and resource utilization, independent historian/historians were used to obtain complete medical history. I independently interpreted the test that were performed, results were reviewed by me and considered findings on radiology if ordered. Medical management and examination interpretation discussions were had by me with other qualified healthcare professionals as indicated for the patient's care. ED Course Orders Procedure Category Date Status Time Cbc With Differential LAB 09/24/24 Complete 09:51 Prothrombin Time With LAB 09/24/24 Complete INR 09:51 B-Type Natriuretic LAB 09/24/24 Complete Peptide 09:51 Chest 1vw RAD 09/24/24 Resulted 09:51 12 Lead Ekg Tracing- EKG 09/24/24 Complete Technical 09:51 0.9%Nacl 1000ml (Ns PHA 09/24/24 Complete 1000ml) 10:00 Magnesium LAB 09/24/24 Complete 09:51 Creatine Kinase, Total LAB 09/24/24 Complete 09:51 Troponin I High LAB 09/24/24 Complete Sensitivity 09:51 Urinalysis Profile LAB 09/24/24 Complete 09:51 Partial LAB 09/24/24 Complete Thromboplastin Time 09:51 Basic Metabolic Panel LAB 09/24/24 Complete 09:51 Covid Rna Naat LAB 09/24/24 Complete 09:51 Influenza Type A & B, LAB 09/24/24 Complete Rapid 09:51 Ct Head/Brain W/O CT 09/24/24 Resulted Contrast 09:51 Prochlorperazine PHA 09/24/24 Complete 10mg/2ml Inj 10:00 Diphenhydramine Hcl PHA 09/24/24 Complete (Benadryl Inj) 10:00 Culture Urine ADÁN 09/24/24 In Process 10:56 Current Medications Medications (Trade) Dose Ordered Sig/Jak Route PRN Reason Start Time Stop Time Status Last Admin Dose Admin Diphenhydramine HCl (BENAdryl INJ) 25 mg ONCE ONCE IV 09/24/24 10:00 09/24/24 10:01 DC 09/24/24 10:24 Prochlorperazine Edisylate (Compazine 10mg/ 2ml Inj) 10 mg ONCE ONCE IV 09/24/24 10:00 09/24/24 10:01 DC 09/24/24 10:24 Sodium Chloride 1,000 ml @ 0 mls/hr ONCE ONCE IV 09/24/24 10:00 09/24/24 10:01 DC 09/24/24 10:24 Vital Signs Date Time Temp Pulse Resp B/P (MAP) Pulse Ox O2 Delivery O2 Flow Rate FiO2 09/24/24 09:45 98.1 71 16 169/80 97 Room Air 0 DX & DISP Disposition: Discharge Departure Impression: Primary Impression: Tension headache Additional Impressions: Sinusitis, UTI (urinary tract infection) Condition: Stable Scripts Diclofenac Sodium (Voltaren Arthritis Pain) 1 % Gel..gram. 20 GM TP BID for 7 Days, #1 TUBE Prov: MARCELA GUAMAN MD 09/24/24 Cephalexin Monohydrate (Keflex) 500 Mg Cap 1 CAP PO TID for 10 Days, #30 CAP 0 Refills Prov: MARCELA GUAMAN MD 09/24/24 Additional Instructions: FOLLOW-UP WITH PRIMARY CARE PROVIDER IN 1 TO 2 DAYS. TAKE MEDICATIONS DIRECTED HERE IN THE EMERGENCY ROOM. OKAY TO CONTINUE HOME MEDICATIONS UNLESS OTHERWISE DISCUSSED DURING YOUR VISIT IN THE EMERGENCY ROOM TODAY. RETURN TO YOUR NEAREST EMERGENCY ROOM IF SYMPTOMS WORSEN OR IF THERE IS NO IMPROVEMENT. CALL 911 IF YOU NEED IMMEDIATE ASSISTANCE. TAKE TYLENOL [id number] NEEDED AND IF NO CONTRAINDICATIONS ARE PRESENT. INCREASE ORAL HYDRATION. A WOUND CULTURE OR URINE CULTURE WAS ORDERED HERE IN THE EMERGENCY ROOM DEPARTMENT PLEASE FOLLOW-UP WITH PRIMARY CARE PROVIDER AND ADVISE THEM TO GET REPEAT PORTS FROM OUR FACILITY. IF YOU HAD ANY AZAM WRAP/SPLINTS THAT WERE APPLIED HERE, PLEASE DO NOT REMOVE THEM UNTIL YOU SEE YOUR PRIMARY CARE OR SPECIALTY. Referrals: Referrals: BHARAT BANKS DO (PCP) Time of Disposition: 11:48 I have reviewed, & agreed with my scribe's, documentation. (Entered by Chelsea Ortega, acting as a scribe for Dr. Guaman) I personally scribed for MARCELA GUAMAN MD (IRVIN) on 09/24/24 at 10:43. Electronically submitted by Chelsea Ortega ([employer]). I personally scribed for MARCELA GUAMAN MD (IRVIN) on 09/24/24 at 10:57. Electronically submitted by Chelsea Ortega ([employer]). I personally scribed for MARCELA GUAMAN MD (IRVIN) on 09/24/24 at 11:31. Electronically submitted by Chelsea Ortega ([employer]). I personally scribed for MARCELA GUAMAN MD (IRVIN) on 09/24/24 at 11:49. Electronically submitted by Chelsea Ortega ([email or web address]). MARCELA GUAMAN MD Sep 24, 2024 10:43
[2024-09-24 10:48] LABS: APPEARANCE,URINE CLEAR (CLEAR); BILIRUBIN,URINE NEGATIVE (NEGATIVE); COLOR,URINE YELLOW (YELLOW); GLUCOSE, URINE (UA) NEGATIVE (NEGATIVE); KETONES,URINE NEGATIVE (NEGATIVE); LEUKOCYTE ESTERASE ,URINE 250 Leu/uL (NEGATIVE); NITRATE,URINE NEGATIVE (NEGATIVE); OCCULT BLOOD,URINE NEGATIVE (NEGATIVE); PH,URINE 5.5 (5.0-8.0); PROTEIN,URINE 10 mg/dL (NEGATIVE); UROBILINOGEN,URINE 0.2 mg/dL (0.2-1.0)
[2024-09-24 10:56] LABS: ADD UA MICROSCOPIC YES
[2024-09-24 11:02] LABS: BACTERIA,URINE RARE /HPF (None Seen); MUCUS,URINE RARE LPF (None Seen); SQUAMOUS EPITHELIAL CELL,UR FEW /HPF (0-2)
[2024-09-24 11:04] LABS: B-TYPE NATRIURETIC PEPTIDE 13 pg/mL (0-100)
--- NOTE | 2024-09-24 11:22 | HMCIMG ---
CHEST 1VW HISTORY: Chest pain COMPARISON: 07/18/2000 FINDINGS: A frontal projection of the chest was obtained. Prominent interstitial markings are seen with possible superimposed infiltrates. The heart is borderline enlarged. Degenerative changes are seen. Aortic calcifications are seen. IMPRESSION: 1. Prominent interstitial markings are seen with possible superimposed infiltrates.
--- NOTE | 2024-09-24 11:23 | HMCIMG ---
CT HEAD/BRAIN W/O CONTRAST HISTORY: Headaches COMPARISON: None TECHNIQUE: Multiple sequential axial images of the head were obtained from the base of the skull through vertex. Patient was not given contrast through intravenous route. FINDINGS: The ventricles and extraventricular CSF spaces are dilated consistent with cerebral atrophy. Nonspecific white matter changes seen. There is no midline shift, mass effect or herniation. No acute intracranial bleed is seen. Visualized portion of the paranasal sinuses are grossly within normal limits. IMPRESSION: 1. No acute intracranial bleed is seen. 2. Atrophy with white matter changes. CT was performed with one or more following dose reduction techniques: automated exposure control, adjustment of the mA and kv according to patient's size, or use of a iterative reconstruction technique.
[2024-09-24] MEDS ORDERED: DICL20GE TP (11:54)
[2024-09-24] MEDS ORDERED: CEPH500B PO (11:54)
[2024-09-24 12:00] VITALS: BP 170/69; PULSE 70; RESP 14; TEMP 98.1; O2SAT 97
== END 2024-09-24 12:02 | disposition home or self-care (01) ==
LOC: EDH 09:43
DX: G44.209 Tension-type headache, unspecified, not intractable (principal); J32.9 Chronic sinusitis, unspecified; N39.0 Urinary tract infection, site not specified; E78.00 Pure hypercholesterolemia, unspecified; I10 Essential (primary) hypertension; Z79.82 Long term (current) use of aspirin; Z79.890 Hormone replacement therapy; Z79.899 Other long term (current) drug therapy; Z86.73 Personal history of transient ischemic attack (TIA), and cerebral infarction without residual deficits; Z88.5 Allergy status to narcotic agent; Z90.89 Acquired absence of other organs; Z98.51 Tubal ligation status; Z20.822 Contact with and (suspected) exposure to COVID-19
CPT/HCPCS: 99285; 96374; 70450; 71045; 87635; 96361; 96375; 82550; 83735; 84484; 80048; 83880; 85025; 85610; 85730; 87086; 87804 ×2; 81001; 36415; 93005; J1200; J7030; J0780